=== PATIENT | female | born 1930 | race Caucasian/White ===

== ENCOUNTER 2016-09-18 21:40 | Inpatient (IN) | payer MEDICARE, MEDICAID ==
[2016-09-18 21:40] VITALS: BMI 24.1
[2016-09-18 22:03] LABS: ALLEN'S TEST PASS; BEb 3.2 (+/- 2); TCO2 29.2 MMOL/L (23-27)
[2016-09-18 22:04] LABS: ABG Draw Site Right Radial
--- NOTE | 2016-09-18 22:10 | EDPRACDOC ---
- General Information Chief Complaint: Flu-Like Symptoms Stated Complaint: RESP Time Seen by Provider: 09/18/16 22:01 Information Source: Patient Mode of Arrival: Ambulance Home Medications: Home Medications Acetaminophen [Tylenol] 325 mg PO Q6 PRN 09/18/16 Aspirin (Enteric Coated) [Ecotrin] 81 mg PO DAILY 09/18/16 Atenolol 25 mg PO DAILY 09/18/16 Cholecalciferol (Vitamin D3) [Vitamin D3] 2,000 unit PO DAILY 09/18/16 Cyanocobalamin (Vitamin B-12) [Vitamin B-12] 1,000 mcg PO DAILY 09/18/16 Cyclosporine [Restasis (0.05%)] 1 drop OU BID 09/18/16 Denosumab [Prolia] 60 mg SQ .Q6 MONTHS 09/18/16 Dm/Phenyleph/Chlorpheniramine [Norel Dm Liquid] 0.5 tab PO BID 09/18/16 Docusate Sodium 100 mg PO DAILY 09/18/16 Furosemide [Lasix] 20 mg PO DAILY 09/18/16 Gabapentin [Gralise] 300 mg PO BID 09/18/16 Guaifenesin [Q-Tussin] 10 ml PO QID PRN 09/18/16 Guaifenesin-Dextromethorphan [Robitussin Dm] 10 ml PO Q6 PRN 09/18/16 Guaifenesin/D-Methorphan Hb/PE [Robafen Cf Liquid] 10 ml PO QID 09/18/16 Hydrocodone 5 mg & APAP 325 mg [Lortab 5-325 Tab] 0.5 tab PO Q4 PRN 09/18/16 Ibuprofen 600 mg PO BID 09/18/16 Ibuprofen 600 mg PO DAILY PRN 09/18/16 Lactobacillus Combination No.4 [Probiotic] 1 each PO DAILY 09/18/16 Levothyroxine [Synthroid, Levoxyl] 50 mcg PO DAILY 09/18/16 Lubiprostone [Amitiza] 24 mcg PO DAILY 09/18/16 Magnesium Hydroxide [Milk of Magnesia] 30 mg PO DAILY PRN 09/18/16 Melatonin 5 mg PO HS 09/18/16 Ondansetron HCl 4 mg PO TID PRN 09/18/16 Oxybutynin Chloride [Ditropan Xl] 10 mg PO DAILY 09/18/16 Pantoprazole Sodium 40 mg PO DAILY 09/18/16 Polyethylene Glycol 3350 17 gm MC DAILY PRN 09/18/16 Vit A/Vit C/Vit E/Zinc/Copper [Preservision Areds Softgel] 1 each PO BID Zolpidem Tartrate 5 mg PO HS PRN 09/18/16 Allergies/Adverse Reactions: Allergies Allergy/AdvReac Type Severity Reaction Status Date / Time codeine [Codeine] Allergy Unknown/See Verified 09/18/16 21:55 Comments Sulfa (Sulfonamide Allergy Unknown/See Verified 09/18/16 21:55 Antibiotics) Comments [Sulfa(Sulfonamide Antibiotics)] - History of Present Illness Onset: 1 week HPI: PATIENT PRESENTS C/O SOB AND COUGH FOR 3 DAYS. NO N/V/D. COUGH NONPRODUCTIVE. PATIENT COMPLETED MOXIFLOXACIN ON THE . PATIENT RECEIVED ALBUTEROL AND SOLU MEDROL IN ROUTE Treated Infection: Antibiotic Symptoms: Reports: Chills, Fever, SOB, Myalgia ED Past Medical History - History Reviewed Yes Nurses notes reviewed and agree except as marked Travel Outside of [place] in the Last 3 Months?: No - Patient Medical History Cardiac History: Reports: Atrial Fibrillation, Hypertension, Hypercholesterolemia GI/ History: Reports: Urinary Tract Infection, Gastroesophageal Reflux Musculoskeletal History: Reports: Arthritis Psychological History: Denies: Depression Systemic History: Reports: Anemia. Denies: Cancer Surgical History: Reports: Hysterectomy, Tonsillectomy/Adnoidectomy, Other - Family Medical History Reports: Cancer (sister - breast). Denies: Hypertension, Diabetes, Stroke, Cardiac Disorders - Social Medical History Smoking Status: Never smoker ETOH: None Substance Abuse: None Lives In: Detention Facility EDM Review of Systems - Review of Systems ROS Negative Except as Marked: Yes All systems reviewed and were negative except as marked Constitutional: No Symptoms Reported. negative: Fever, Chills, Weakness, Fatigue, Loss of Appetite Eyes: No Symptoms Reported. negative: Redness, Blurred Vision, Double Vision, Discharge, Pain, Light Sensitive, Photophobia Ears: No Symptoms Reported. negative: Pain, Hearing Loss, Drainage, Ear Pulling Throat: No Symptoms Reported. negative: Pain, Swelling Nose: No Symptoms Reported. negative: Congestion, Bleeding, Discharge, Injection, Swelling, Deformity, Ecchymosis, Tender, Abrasion, Laceration Mouth: No Symptoms Reported. negative: Pain, Drooling Respiratory: Cough, Shortness of Breath. negative: Barky Cough, Brassy Cough, Hemoptysis, Wheezing Cardiovascular: No Symptoms Reported. negative: Chest Pain, Palpitations, Syncope, Edema, Orthopnea, PND, Skin Mottling, Cyanosis Gastrointestinal: No Symptoms Reported. negative: Pain, Constipation, Nausea, Vomiting, Diarrhea, Melena, Formula Intolerance Genitourinary: No Symptoms Reported. negative: Dysuria, Hematuria, Frequency, Discharge, Bleeding, Testicular Pain, Neurological: No Symptoms Reported. negative: Headache, Dizziness, Seizure, Numbness, Weakness, Speech Difficulty, Gait Difficulty Musculoskeletal: No Symptoms Reported. negative: Neck, Chestwall, Ribs, Back, Shoulder, Arm, Elbow, Forearm, Wrist, Hand, Pelvis, Hip, Femur, Knee, Leg, Ankle , Foot Integumentary: No Symptoms Reported. negative: Itching, Rash, Bruising, Wound Allergic/Immunologic: No Symptoms Reported. negative: Hives, Itching Hematologic: No Symptoms Reported. negative: Lymphadenopathy, Easy Bruising, Easy Bleeding Endocrine: No Symptoms Reported. negative: Weight Gain, Weight Loss Psychiatric: No Symptoms Reported. negative: Anxiety, Depression, Hallucinations, Insomnia, Suicidal - Physical Exam Constitutional: Alert (Awake), No apparent distress Oriented to: Time, Person, Place Last recorded Vital Signs: Last Vital Signs Temp 97.9 F 09/18/16 21:42 Pulse 70 09/18/16 21:42 Resp 22 09/18/16 21:42 BP 147/65 09/18/16 21:42 Pulse Ox 92 09/18/16 21:42 Oxygen Pulse Oxygen Saturation 92 O2 Device Room Air Oxygen Flow Rate Fraction of Inspired Oxygen ( FIO2) - HEENT Head: Normal ( normocephalic) Eye Exam: Normal (PERRL, EOMI, Sclera white) Oropharynx: Normal (Pharynx:Moist without exudate,Gums-no swelling) Tympanic Membrane: Normal ENT EAC: Normal TMJ: Normal Nose: No Symptoms Reported (septum midline) Neck: Normal (FROM, trachea at midline) - Respiratory/Cardiovascular Respiratory: Diminished, Rhonchi Cardiovascular: Normal (RRR without murmur, gallop or rub) - GI Auscultation: Normal (NABS) Palpation: Normal (Soft,No rebound or guarding, non distended) Tenderness: Non tender Regalado's Sign: Negative - Musculoskeletal Back: Normal (Non-Tender) Extremities: Normal (Normal tone, Pulses 2+ No cyanosis or edema, FROM) - Integumentary Skin: Normal, Warm, Dry Lymphatics: Normal (no adenopathy) - Neurologic Memory Impaired: Normal Motor Function: Normal (Normal tone, Pulses 2+ No cyanosis or edema, FROM) Cranial Nerve: Normal (CN II-X11 intact sensation, strength 5/5) Cerebellar: Normal Mood Description: Normal Perception: Normal - Results 09/18/16 22:51 09/18/16 22:51 Puncture Site Right radial 09/18/16 22:00 pH 7.430 pH UNITS (7.35-7.45) 09/18/16 22:00 pCO2 42.0 mmHg (35-45) 09/18/16 22:00 pO2 57.0 mmHg (80-100) L 09/18/16 22:00 HCO3 27.9 MMOL/L (22-26) H 09/18/16 22:00 Total CO2 29.2 MMOL/L (23-27) H 09/18/16 22:00 Base Excess 3.2 (+/- 2) H 09/18/16 22:00 FiO2 % 21% 09/18/16 22:00 Specimen Drawn By Aden 09/18/16 22:00 Lab Results 09/18/16 22:00 Puncture Site Right radial pH 7.430 pCO2 42.0 pO2 57.0 L HCO3 27.9 H Total CO2 29.2 H Base Excess 3.2 H FiO2 % 21% Specimen Drawn By Aden - EKG EKG #1 EKG Time: 22:22 -: Yes EKG interpreted by me Rate: bpm: 59 [place]: Normal Rhythm: SB Block: None Hypertrophy: None ST: Normal - Departure Yes I personally saw and evaluated the patient. Disposition: Admit IP To This Hospital Condition: Stable Final Diagnosis: Hypoxia Bilateral pneumonia Qualifiers: Pneumonia type: due to unspecified organism Lung location: unspecified part of lung Qualified Code(s): J18.9 - Pneumonia, unspecified organism Instructions: Bacterial Pneumonia (ED) Education/Counseling Given To: Patient Education/Counseling Given Regarding: Diagnosis, Treatment, Prognosis Decision to Admit Time: 00:19 Decision to admit date: 09/19/16 Decision to admit: from ED - Physician Consulted Hospitalist Time Called: 00:20 Provider Called: Bert Lan Time Alumni Coordinator Returned Call: 00:20
--- NOTE | 2016-09-18 22:40 | DIRPT ---
CLINICAL DATA: 85-year-old female with shortness of breath EXAM: CHEST 2 VIEW COMPARISON: Radiograph dated 04/29/2014 FINDINGS: Two views of the chest demonstrate emphysematous changes of the lungs. No focal consolidation, pleural effusion, or pneumothorax. There is stable cardiomegaly. There is atherosclerotic calcification of the aorta. Degenerative changes of the spine. IMPRESSION: No active cardiopulmonary disease. Electronically Signed By: Royer Guadalupe M.D. On: 09/18/2016 22:37
[2016-09-18] MEDS ORDERED: ALBUTEROL 0.083% 3 ML NEB NEB ONE (22:44)
[2016-09-18] MEDS ORDERED: Pharmacy Review for Metformin - IV Contrast Given SCH (23:00)
[2016-09-18 23:05] LABS: AUTOMATED BASOPHIL 0.7 % (0-2); AUTOMATED EOSINOPHIL 6.8 % (0-5); AUTOMATED LYMPH 33.2 % (17-44); AUTOMATED MONOCYTE 17.6 % (3-10); AUTOMATED NEUTROPHIL 41.7 % (45-76); MPV 7.5 fL (7.4-10.4)
[2016-09-18 23:14] LABS: BLOOD UREA NITROGEN 20 MG/DL (7-17); CALC CORRECTED 9.2 MG/DL (8.4-10.2); CALCIUM 8.6 MG/DL (8.4-10.2); CALCULATED OSMOLALITY 279 MOs/Kg (270-290); CHLORIDE 105 mEq/L (98-107); CPK TOTAL WITH POSSIBLE MB 23 IU/L (30-134); GLUCOSE 114 MG/DL (70-99); SODIUM LEVEL 143 mEq/L (137-146); TOTAL PROTEIN 6.1 G/DL (6.3-8.2)
[2016-09-18] MEDS ORDERED: POTASSIUM CHLORIDE 20 MEQ TAB PO ONE (23:34)
--- NOTE | 2016-09-19 00:06 | DIRPT ---
CLINICAL DATA: Acute onset of shortness of breath and cough. Decreased O2 saturation. Initial encounter. EXAM: CT ANGIOGRAPHY CHEST WITH CONTRAST TECHNIQUE: Multidetector CT imaging of the chest was performed using the standard protocol during bolus administration of intravenous contrast. Multiplanar CT image reconstructions and MIPs were obtained to evaluate the vascular anatomy. CONTRAST: 80 mL of Isovue 370 IV contrast COMPARISON: CTA of the chest performed 05/21/2006, and chest radiograph performed earlier today at 10:23 p.m. FINDINGS: There is no evidence of pulmonary embolus. Patchy ground-glass opacities are noted bilaterally. This may reflect a mild infectious process or possibly atelectasis. Mild left basilar atelectasis or scarring is noted. There is no evidence of pleural effusion or pneumothorax. No masses are identified; no abnormal focal contrast enhancement is seen. Mild tracheomalacia is noted. Diffuse coronary artery calcifications are seen. There is a prominent 3.4 x 2.4 x 1.4 cm mass to the left of the trachea at the superior mediastinum, of uncertain significance. Remaining visualized nodes are normal in size. No pericardial effusion is identified. No axillary lymphadenopathy is seen. A 1.1 cm hypodensity is noted within the left thyroid lobe. The visualized portions of the liver and spleen are unremarkable. No acute osseous abnormalities are seen. Review of the MIP images confirms the above findings. IMPRESSION: 1. No evidence of pulmonary embolus. 2. Patchy ground-glass bilateral airspace opacities noted bilaterally. This may reflect a mild infectious process or possibly atelectasis. Mild left basilar atelectasis or scarring noted. 3. Mild tracheomalacia noted. 4. Diffuse coronary artery calcifications seen. 5. New prominent 3.4 x 2.4 x 1.4 cm mass to the left of the trachea at the superior mediastinum, of uncertain significance. This would be amenable to biopsy, as deemed clinically appropriate. It could arise from the thyroid, though a connection with the thyroid is not definitely seen on this study. Further evaluation is suggested as deemed clinically appropriate. Electronically Signed By: Ward Stanley M.D. On: 09/19/2016 00:04
[2016-09-19] MEDS ORDERED: PIPERACILLIN AND TAZOBACTAM 3.375 GM in D5W 100 ML IV ONE (00:21)
--- NOTE | 2016-09-19 01:12 | HISTPHYS ---
- Chief Complaint coughing, fever - History of Present Illness PRIMARY CARE PROVIDER: Dr. Stallings Patient is a resident of [facility] HPI: The patient is an 85 yo woman who presents with worsening coughing. She has had coughing for 1.5 weeks but worse in the last few days. Daughter reports that the patient had coughing (much more mild than this) for years. Treated with moxifloxacin as an outpatient and completed course but no improvement. Onset: 1.5 weeks ago. Duration: intermittent.Frequent. Character: episodes of severe coughing. Alleviated by: Nothing. Exacerbated by: exertion. Associated Symptoms: Coughing is not productive. Wheezing. Mostly not short of breath; only when she is having a coughing spell. Had fever and chills earlier. Treatments: none at home except usual medications. - Medical History Cardiac History: Reports: Atrial Fibrillation, Hypertension, Hypercholesterolemia (possible), Syncope (severe episode 2012 with skull fracture and brain bleed) GI/ History: Reports: Urinary Tract Infection, Gastroesophageal Reflux Musculoskeletal History: Reports: Arthritis Systemic History: Reports: Anemia. Denies: Cancer Neurological History: Reports: Other (2012 traumatic fall with skull fracture and brain bleed. NO BLOOD THINNERS.). Denies: Cerebrovascular Accident (but had 3-4 TIAs) Psychological History: Denies: Depression - Surgical History Reports: Hysterectomy, Tonsillectomy/Adnoidectomy, Other (IVC filter in 2012 at [facility]) - Medictions/Allergies Allergies codeine [Codeine] Allergy (Verified 09/18/16 21:55) Unknown/See Comments Sulfa (Sulfonamide Antibiotics) [Sulfa(Sulfonamide Antibiotics)] Allergy ( Verified 09/18/16 21:55) Unknown/See Comments SKIN BLISTERS Current Medication List: Reviewed Home Medications Acetaminophen [Tylenol] 325 mg PO Q6 PRN 09/18/16 Aspirin (Enteric Coated) [Ecotrin] 81 mg PO DAILY 09/18/16 Atenolol 25 mg PO DAILY 09/18/16 Cholecalciferol (Vitamin D3) [Vitamin D3] 2,000 unit PO DAILY 09/18/16 Cyanocobalamin (Vitamin B-12) [Vitamin B-12] 1,000 mcg PO DAILY 09/18/16 Cyclosporine [Restasis (0.05%)] 1 drop OU BID 09/18/16 Denosumab [Prolia] 60 mg SQ .Q6 MONTHS 09/18/16 Dm/Phenyleph/Chlorpheniramine [Norel Dm Liquid] 0.5 tab PO BID 09/18/16 Docusate Sodium 100 mg PO DAILY 09/18/16 Furosemide [Lasix] 20 mg PO DAILY 09/18/16 Gabapentin [Gralise] 300 mg PO BID 09/18/16 Guaifenesin [Q-Tussin] 10 ml PO QID PRN 09/18/16 Guaifenesin-Dextromethorphan [Robitussin Dm] 10 ml PO Q6 PRN 09/18/16 Guaifenesin/D-Methorphan Hb/PE [Robafen Cf Liquid] 10 ml PO QID 09/18/16 Hydrocodone 5 mg & APAP 325 mg [Lortab 5-325 Tab] 0.5 tab PO Q4 PRN 09/18/16 Ibuprofen 600 mg PO BID 09/18/16 Ibuprofen 600 mg PO DAILY PRN 09/18/16 Lactobacillus Combination No.4 [Probiotic] 1 each PO DAILY 09/18/16 Levothyroxine [Synthroid, Levoxyl] 50 mcg PO DAILY 09/18/16 Lubiprostone [Amitiza] 24 mcg PO DAILY 09/18/16 Magnesium Hydroxide [Milk of Magnesia] 30 mg PO DAILY PRN 09/18/16 Melatonin 5 mg PO HS 09/18/16 Ondansetron HCl 4 mg PO TID PRN 09/18/16 Oxybutynin Chloride [Ditropan Xl] 10 mg PO DAILY 09/18/16 Pantoprazole Sodium 40 mg PO DAILY 09/18/16 Polyethylene Glycol 3350 17 gm MC DAILY PRN 09/18/16 Vit A/Vit C/Vit E/Zinc/Copper [Preservision Areds Softgel] 1 each PO BID Zolpidem Tartrate 5 mg PO HS PRN 09/18/16 - Family History Reports: Cancer (Sister - breast), Cardiac Disorders (Father: CHF, possible [place]) , Other (Mother 84yo.). Denies: Hypertension, Diabetes, Stroke - Social History Lives: in Assisted Living ([facility]) Smoking Status: Never smoker Social History: Denies: Alcohol Use, Substance Use Disorder - Review of Systems GENERAL: Had fever and chills earlier. No diaphoresis. Positive for fatigue/ malaise. HEENT: No ear pain or discharge. No nasal discharge or bleeding. No throat pain or swelling. No eye pain or eye redness. RESPIRATORY: Cough, wheezing, shortness of breath. CARDIOVASCULAR: No chest pain or palpitations. GI: No abdominal pain, nausea, vomiting, diarrhea, constipation, or bloody stool. NEUROLOGICAL: No headache or focal weakness. INTEGUMENT: no rashes, itching, or lesions. LYMPHATIC SYSTEM: no lymph node swelling or pain. MUSCULOSKELETAL: no new pain or joint swelling. GENITOURINARY: No dysuria or hematuria. ENDOCRINE: No polyuria or polydipsia. HEME: No chronic anemia, bleeding, or easy bruising. - Physical Exam Vital Signs: Initial Vitals Temperature 97.9 F 09/18/16 21:42 Pulse Rate 70 09/18/16 21:42 Respiratory Rate 22 09/18/16 21:42 Blood Pressure 147/65 09/18/16 21:42 Pulse Oxygen Saturation 92 09/18/16 21:42 Vital Signs - 24 hr 09/18/16 21:42 Temperature 97.9 F Pulse Rate 70 Respiratory 22 Rate Blood Pressure 147/65 Pulse Oxygen 92 Saturation Weight: 65.7 kg Height: 5 feet 5 inches BMI: 24.1 - Other Exam Other Exam Findings: GENERAL: Ill-appearing, well nourished, in acute distress. HEENT: Normocephalic. Minimal deformity consistent with history of posterior skull fracture. Pupils equal and round. Nares patent, without discharge or bleeding. No oropharyngeal lesions or erythema. Mucous membranes are dry. NECK: is supple, no masses, trachea midline. RESPIRATORY: Clear to auscultation bilaterally. Chest wall movements are symmetric. No use of accessory muscles to breathe. Intermittent mild tachypnea. Severe wheezing bilaterally. Bilateral coarse breath sounds/rhonchi. No rales. Frequent coughing. CARDIOVASCULAR: Normal S1, S2. Irregular. No murmurs, rubs, or gallops. PMI non- displaced. Carotids: no carotid bruits. No bradycardia or tachycardia. DP pulses 2+ bilaterally. GI: soft, nontender, non-distended, normal active bowel sounds. No hepatosplenomegaly. INTEGUMENT: Clean, dry, and intact. No rashes. Has lesion on her right leg anterior tib area on medial half: well-healing approx 10 cm ovoid lesion with mild hyperpigmentation and only a very small 0.5 cm superficial open wound the center. No warmth, edema, exudate, or tenderness. MUSCULOSKELETAL: Moving all extremities. No cyanosis. No clubbing. Edema: none bilaterally. NEUROLOGICAL: Cranial nerves 2-12 grossly intact. Motor 4/5 throughout. Reflexes : 2+ bilaterally. Babinski: toes downgoing bilaterally. Intact Finger to nose. Sensory grossly intact to light touch. Intact rapid alternating movements bilaterally. No pronator drift. PSYCHIATRIC: Oriented. Normal and appropriate affect. LYMPHATIC: No cervical lymphadenopathy. No supraclavicular lymphadenopathy. - Lab Results Laboratory Results - last 24 hr 09/18/16 09/18/16 09/18/16 22:00 22:51 22:51 WBC 7.1 RBC 3.79 L Hgb 11.0 L Hct 32.6 L MCV 86 MCH 29.1 MCHC 33.8 RDW 15.0 H Plt Count 249 MPV 7.5 Neut % (Auto) 41.7 L Lymph % (Auto) 33.2 Gila % (Auto) 17.6 H Eos % (Auto) 6.8 H Baso % (Auto) 0.7 Absolute Neuts (auto) 2.91 Absolute Lymphs (auto) 2.34 Puncture Site Right radial pH 7.430 pCO2 42.0 pO2 57.0 L HCO3 27.9 H Total CO2 29.2 H Base Excess 3.2 H FiO2 % 21% Specimen Drawn By [facility] Sodium 143 Potassium 3.2 L Chloride 105 Carbon Dioxide 27 Anion Gap 14 BUN 20 H Creatinine 1.20 H Estimated GFR (MDRD) 43 L Glucose 114 H Calculated Osmolality 279 Calcium 8.6 Corrected Calcium 9.2 Total Bilirubin 0.3 AST 14 ALT 27 Alkaline Phosphatase 113 Creatine Kinase 23 L Troponin I < 0.01 Aps-N-Sppugrcnyqt Pept Total Protein 6.1 L Albumin 3.4 L 09/18/16 22:51 WBC RBC Hgb Hct MCV MCH MCHC RDW Plt Count MPV Neut % (Auto) Lymph % (Auto) Gila % (Auto) Eos % (Auto) Baso % (Auto) Absolute Neuts (auto) Absolute Lymphs (auto) Puncture Site pH pCO2 pO2 HCO3 Total CO2 Base Excess FiO2 % Specimen Drawn By Sodium Potassium Chloride Carbon Dioxide Anion Gap BUN Creatinine Estimated GFR (MDRD) Glucose Calculated Osmolality Calcium Corrected Calcium Total Bilirubin AST ALT Alkaline Phosphatase Creatine Kinase Troponin I Aoc-U-Jijwsxxqzgh Pept 1360 Total Protein Albumin - Diagnostic Findings DIAGNOSTIC DATA: EK bpm. Sinus bradycardia. IMAGING: Chest x-ray, viewed personally: EXAM: CHEST 2 VIEW COMPARISON: Radiograph dated 04/29/2014 FINDINGS: Two views of the chest demonstrate emphysematous changes of the lungs. No focal consolidation, pleural effusion, or pneumothorax. There is stable cardiomegaly. There is atherosclerotic calcification of the aorta. Degenerative changes of the spine. IMPRESSION: No active cardiopulmonary disease. CTA Chest, viewed personally: EXAM: CT ANGIOGRAPHY CHEST WITH CONTRAST TECHNIQUE: Multidetector CT imaging of the chest was performed using the standard protocol during bolus administration of intravenous contrast. Multiplanar CT image reconstructions and MIPs were obtained to evaluate the vascular anatomy. CONTRAST: 80 mL of Isovue 370 IV contrast COMPARISON: CTA of the chest performed 05/21/2006, and chest radiograph performed earlier today at 10:23 p.m. FINDINGS: There is no evidence of pulmonary embolus. Patchy ground-glass opacities are noted bilaterally. This may reflect a mild infectious process or possibly atelectasis. Mild left basilar atelectasis or scarring is noted. There is no evidence of pleural effusion or pneumothorax. No masses are identified; no abnormal focal contrast enhancement is seen. Mild tracheomalacia is noted. Diffuse coronary artery calcifications are seen. There is a prominent 3.4 x 2.4 x 1.4 cm mass to the left of the trachea at the superior mediastinum, of uncertain significance. Remaining visualized nodes are normal in size. No pericardial effusion is identified. No axillary lymphadenopathy is seen. A 1.1 cm hypodensity is noted within the left thyroid lobe. The visualized portions of the liver and spleen are unremarkable. No acute osseous abnormalities are seen. Review of the MIP images confirms the above findings. IMPRESSION: 1. No evidence of pulmonary embolus. 2. Patchy ground-glass bilateral airspace opacities noted bilaterally. This may reflect a mild infectious process or possibly atelectasis. Mild left basilar atelectasis or scarring noted. 3. Mild tracheomalacia noted. 4. Diffuse coronary artery calcifications seen. 5. New prominent 3.4 x 2.4 x 1.4 cm mass to the left of the trachea at the superior mediastinum, of uncertain significance. This would be amenable to biopsy, as deemed clinically appropriate. It could arise from the thyroid, though a connection with the thyroid is not definitely seen on this study. Further evaluation is suggested as deemed clinically appropriate. - Assessment (1) Bacterial pneumonia J15.9 - UNSPECIFIED BACTERIAL PNEUMONIA Acute Present on Admission: Yes Patient just completed a course of moxifloxacin on 09/10/2016 that was presumably for a respiratory infection. She does live in assisted living, which could be considered a healthcare facility. Failed outpatient management with recent antibiotic. Plan: Cultures ordered. IV Zosyn for broader coverage for risk of healthcare associated pneumonia or even aspiration pneumonia. (2) Hypoxia R09.02 - HYPOXEMIA Acute Present on Admission: Yes Patient has dyspnea and is not improving. Patient's PO2 is low. Plan: Place patient on oxygen by nasal cannula and increase to Venti Mask 40% if needed. Monitor oxygen saturation levels and keep O2 sats greater than 92%. (3) Wheezing R06.2 - WHEEZING Acute Present on Admission: Yes No history of asthma or COPD. Significant wheezing on exam. Plan: Trial of Duonebs and albuterol. Consider adding IV methylprednisolone if no improvement. 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 This would be amenable to biopsy, as deemed clinically appropriate. It could arise from the thyroid, though a connection with the thyroid is not definitely seen on this study. Further evaluation is suggested as deemed clinically appropriate. Plan: Informed family and patient. They will decide whether they want to proceed with evaluation. Re-assess tomorrow for their decision. Could treat current infection and then if patient continues to have cough, consider further evaluation of the lesion. (5) Thyroid nodule E04.1 - NONTOXIC SINGLE THYROID NODULE Acute Present on Admission: Yes CTA chest findin.1 cm hypodense lesion in the left lobe of the thyroid. Per family it is chronic. Plan: Outpatient follow up with primary care. Will check TSH. (6) Cough R05 - COUGH Acute Present on Admission: Yes Acute and chronic. Reports that she has had a cough x years but current coughing is much worse. Plan: PRN medications. Will need full workup if it does not resolve; may need outpatient evaluation. (7) History of intracranial hemorrhage Z86.79 - PERSONAL HISTORY OF OTHER DISEASES OF THE CIRCULATORY SYSTEM Chronic Present on Admission: Yes After a traumatic fall had a skull fracture and severe intracranial bleed. Was told not to take anticoagulants. Case Care Discussed with: Patient, Family, Nursing Staff Total Time: 70 min
[2016-09-19] MEDS ORDERED: ALBUTEROL 0.083% 3 ML NEB NEB PRN (03:38)
[2016-09-19] MEDS ORDERED: NS 500 ML IV ONE (05:32)
[2016-09-19] MEDS: PANTOPRAZOLE 40 MG TAB PO SCH (05:38)
[2016-09-19] MEDS ORDERED: Vaccine Screening Complete SCH (06:00)
[2016-09-19 07:28] LABS: MPV 7.6 fL (7.4-10.4)
[2016-09-19] MEDS: Albuterol/Ipratropium Neb 3 ML NEB NEB SCH ×3 (07:28→20:29)
[2016-09-19 07:39] LABS: BLOOD UREA NITROGEN 17 MG/DL (7-17); CALCIUM 8.5 MG/DL (8.4-10.2); CALCULATED OSMOLALITY 276 MOs/Kg (270-290); CHLORIDE 106 mEq/L (98-107); GLUCOSE 76 MG/DL (70-99); SODIUM LEVEL 143 mEq/L (137-146)
[2016-09-19] MEDS: FUROSEMIDE 20 MG TAB PO SCH (08:06)
[2016-09-19] MEDS: ATENOLOL 25 MG TAB PO SCH (08:06)
[2016-09-19] MEDS: Docusate Sodium 100 MG CAP PO SCH (08:07)
[2016-09-19] MEDS: LEVOTHYROXINE 50 MCG (0.05 MG) TAB PO SCH (08:07)
[2016-09-19] MEDS: PIPERACILLIN AND TAZOBACTAM 3.375 GM in D5W 100 ML IV SCH ×3 (08:07→21:15)
[2016-09-19] MEDS: GABAPENTIN 300 MG CAP PO SCH ×2 (08:07→21:16)
[2016-09-19] MEDS: TOLTERODINE 4 MG LA CAP PO SCH (08:07)
[2016-09-19 08:46] LABS: WBC/URINE TNTC (0-5)
[2016-09-19] MEDS ORDERED: Non-Formulary Medication ITEM (Cholecalciferol (Vitamin D3) [Vitamin D3] 2,000 UNIT) PO SCH (09:00)
[2016-09-19] MEDS ORDERED: VIT A PO SCH (09:00)
[2016-09-19] MEDS ORDERED: Non-Formulary Medication ITEM (Cyanocobalamin (Vitamin B-12) [Vitamin B-12] 1,000 MCG) PO SCH (09:00)
[2016-09-19] MEDS ORDERED: LACTOBACILLUS COMBINATION NO 4 PO SCH (09:00)
[2016-09-19] MEDS ORDERED: GABAPENTIN 300 MG PO SCH (09:00)
[2016-09-19] MEDS ORDERED: [UNRECOGNIZED DRUG - OTHER] PO SCH (09:00)
[2016-09-19] MEDS ORDERED: COPPER PO SCH (09:00)
[2016-09-19] MEDS ORDERED: VIT C PO SCH (09:00)
[2016-09-19] MEDS ORDERED: LUBIPROSTONE 24 MCG CAP PO SCH (09:00)
[2016-09-19] MEDS ORDERED: ZINC PO SCH (09:00)
[2016-09-19] MEDS ORDERED: VIT E PO SCH (09:00)
[2016-09-19] MEDS ORDERED: OXYBUTYNIN CHLORIDE 10 MG PO SCH (09:00)
[2016-09-19] MEDS ORDERED: CYCLOSPORINE OU SCH (09:00)
[2016-09-19 09:03] LABS: LEUKOCYTES/URINE 2+ (NEGATIVE); NITRITE/URINE NEG (NEGATIVE); URINE OCCULT BLOOD NEG (NEG/TRACE)
[2016-09-19] MEDS: CYANOCOBALAMIN (Vitamin B-12) 500 MCG TABLET PO SCH (14:14)
[2016-09-19] MEDS: CHOLECALCIFEROL 1000 UNITS TAB PO SCH (14:14)
[2016-09-19] MEDS: PROBIOTIC BLEND TAB PO SCH (14:15)
[2016-09-19] MEDS: VITAMINS, MULTIPLE CAP PO SCH (14:15)
[2016-09-19] MEDS: AZITHROMYCIN 500 MG in D5W 250 ML IV SCH (14:54)
--- NOTE | 2016-09-19 14:59 | GENMEDPROG ---
Subjective Note: Patient in bed responsive follows commands. Acutely ill but not toxic- appearing. Still short of breath coughing producing fair amount thick sputum. Audible wheezes.. Notes Reviewed: Yes Events from last night noted and discussed with Clinical Staff Current Medication List: Reviewed Currently: Reports: Cough, Wheezing, KING, SOB, Sputum, Reflux Sx DVT Prophylaxis: Yes - Physical Examination Vital Signs and I&O: Last Vital Signs Temp 98.7 F 09/19/16 10:20 Pulse 82 09/19/16 10:20 Resp 16 09/19/16 10:20 BP 127/58 L 09/19/16 10:20 Pulse Ox 96 09/19/16 13:52 Oxygen Pulse Oxygen Saturation 96 O2 Device Room Air Oxygen Flow Rate 2 Fraction of Inspired Oxygen ( FIO2) Intake & Output 09/16/16 09/17/16 09/18/16 09/19/16 23:59 23:59 23:59 23:59 Intake Total 580 Balance 580 Patient's weight 76.232 kg General: Alert, Oriented x3, Cooperative, Mild distress HEENT: Normal, PERRLA, EOMI, Anicteric Sclera Neck: Non-tender, Normal inspection, Limited range of motion Lymphatics: Normal (no adenopathy) Respiratory: Diminished, Rhonchi, Wheezes Cardiovascular: Regular rate, Normal S1, Normal S2, Murmurs GI: Normal bowel sounds, Soft, Non tender, No hepatospenomegaly, No masses, Obese Extremities/Musculoskeletal: Edema, DJD Skin: Warm,Dry and Intact, No rashes, No significant lesion Neurological: Normal speech, Reflexes 2+ Psych/Mental Status: Anxious Lab/DI/Studies Reviewed: Last Vital Signs Temp 98.7 F 09/19/16 10:20 Pulse 82 09/19/16 10:20 Resp 16 09/19/16 10:20 BP 127/58 L 09/19/16 10:20 Pulse Ox 96 09/19/16 13:52 09/19/16 06:30 09/19/16 06:30 - Assessment (1) Dehydration Acute E86.0 - DEHYDRATION Comment/Plan: Continue IV fluids. (2) UTI (urinary tract infection) Acute N39.0 - URINARY TRACT INFECTION, SITE NOT SPECIFIED Qualifiers: Urinary tract infection type: acute cystitis Hematuria presence: with hematuria Qualified Code(s): N30.01 - Acute cystitis with hematuria Comment/Plan: Continue antibiotics await urine culture. (3) Bilateral pneumonia Acute J18.9 - PNEUMONIA, UNSPECIFIED ORGANISM Qualifiers: Pneumonia type: due to unspecified organism Lung location: unspecified part of lung Qualified Code(s): J18.9 - Pneumonia, unspecified organism Comment/Plan: Continue antibiotics supplemental O2 nebulized bronchodilators. Continue aggressive pulmonary toilet. (4) Hypothyroid Acute E03.9 - HYPOTHYROIDISM, UNSPECIFIED Qualifiers: Hypothyroidism type: acquired Qualified Code(s): E03.9 - Hypothyroidism, unspecified Comment/Plan: Continue home dose Synthroid (5) GERD (gastroesophageal reflux disease) Acute K21.9 - GASTRO-ESOPHAGEAL REFLUX DISEASE WITHOUT ESOPHAGITIS Qualifiers: Esophagitis presence: without esophagitis Qualified Code(s): K21.9 - Gastro -esophageal reflux disease without esophagitis Comment/Plan: continue ppi (6) Mediastinal mass Acute J98.59 - OTHER DISEASES OF MEDIASTINUM, NOT ELSEWHERE CLASSIFIED Comment/Plan: Patient family undecided on further workup. Case Care Discussed with: Patient, Family, Nursing Staff Education/Counseling Given To: Patient Education/Counseling Given Regarding: Diagnosis, Treatment, Prognosis, Follow Up Critical Care: No Code: Other ([id number])
[2016-09-19] MEDS ORDERED: MELATONIN 5 MG PO SCH (21:00)
[2016-09-19] MEDS: LUBIPROSTONE 24 MCG CAP PO SCH (21:16)
[2016-09-19] MEDS: ZOLPIDEM TARTRATE 5 MG TAB PO PRN (21:19)
[2016-09-20] MEDS: Albuterol/Ipratropium Neb 3 ML NEB NEB SCH ×4 (02:18→21:30)
[2016-09-20] MEDS: PIPERACILLIN AND TAZOBACTAM 3.375 GM in D5W 100 ML IV SCH ×3 (02:38→14:00)
[2016-09-20] MEDS: PANTOPRAZOLE 40 MG TAB PO SCH (05:13)
[2016-09-20] MEDS: Docusate Sodium 100 MG CAP PO SCH (08:22)
[2016-09-20] MEDS: GABAPENTIN 300 MG CAP PO SCH ×2 (08:22→20:21)
[2016-09-20] MEDS: FUROSEMIDE 20 MG TAB PO SCH (08:23)
[2016-09-20] MEDS: TOLTERODINE 4 MG LA CAP PO SCH (08:23)
[2016-09-20] MEDS: LUBIPROSTONE 24 MCG CAP PO SCH ×2 (08:23→20:21)
[2016-09-20] MEDS: LEVOTHYROXINE 50 MCG (0.05 MG) TAB PO SCH (08:23)
[2016-09-20] MEDS: ATENOLOL 25 MG TAB PO SCH (08:23)
[2016-09-20] MEDS: VITAMINS, MULTIPLE CAP PO SCH (11:11)
[2016-09-20] MEDS: PROBIOTIC BLEND TAB PO SCH (11:11)
[2016-09-20] MEDS: AZITHROMYCIN 500 MG in D5W 250 ML IV SCH (11:12)
[2016-09-20] MEDS: CYANOCOBALAMIN (Vitamin B-12) 500 MCG TABLET PO SCH (11:12)
[2016-09-20] MEDS: CHOLECALCIFEROL 1000 UNITS TAB PO SCH (11:12)
[2016-09-20] MEDS ORDERED: Albuterol/Ipratropium Neb 3 ML NEB NEB PRN (16:59)
--- NOTE | 2016-09-20 17:03 | GENMEDPROG ---
Subjective Note: Patient in bed responsive follows commands still coughing producing small amount of sputum still tight in the chest and wheezy. No major behavior problems related to underlying dementia no anger agitation or hostility, only occasional periods of confusion Notes Reviewed: Yes Events from last night noted and discussed with Clinical Staff Current Medication List: Reviewed Currently: Reports: Cough, Wheezing, KING, SOB, Sputum, Reflux Sx DVT Prophylaxis: Yes - Physical Examination Vital Signs and I&O: Last Vital Signs Temp 98.3 F 09/20/16 14:00 Pulse 82 09/20/16 14:00 Resp 18 09/20/16 14:00 BP 124/58 L 09/20/16 14:00 Pulse Ox 93 09/20/16 14:00 Oxygen Pulse Oxygen Saturation 93 O2 Device Room Air Oxygen Flow Rate 2 Fraction of Inspired Oxygen ( FIO2) Intake & Output 09/17/16 09/18/16 09/19/16 09/20/16 23:59 23:59 23:59 23:59 Intake Total 1466 657 Balance 1466 657 Patient's weight 76.232 kg 76.005 kg General: Alert, Oriented x3, Cooperative, Mild distress HEENT: Normal, PERRLA, EOMI, Anicteric Sclera Neck: Non-tender, Normal inspection, Limited range of motion Lymphatics: Normal (no adenopathy) Respiratory: Diminished, Rhonchi, Wheezes Cardiovascular: Regular rate, Normal S1, Normal S2, Murmurs GI: Normal bowel sounds, Soft, Non tender, No hepatospenomegaly, No masses, Obese Extremities/Musculoskeletal: Edema, DJD Skin: Warm,Dry and Intact, No rashes, No significant lesion Neurological: Normal speech, Reflexes 2+ Psych/Mental Status: Anxious Lab/DI/Studies Reviewed: 09/19/16 06:30 09/19/16 06:30 - Assessment (1) Bilateral pneumonia Acute J18.9 - PNEUMONIA, UNSPECIFIED ORGANISM Qualifiers: Pneumonia type: due to unspecified organism Lung location: unspecified part of lung Qualified Code(s): J18.9 - Pneumonia, unspecified organism Comment/Plan: Continue antibiotics in the form of Rocephin and Zithromax. Continue nebulized bronchodilators and mucolytics. (2) Dehydration Acute E86.0 - DEHYDRATION Comment/Plan: Continue IV fluids at lower rate (3) UTI (urinary tract infection) Acute N39.0 - URINARY TRACT INFECTION, SITE NOT SPECIFIED Qualifiers: Urinary tract infection type: acute cystitis Hematuria presence: with hematuria Qualified Code(s): N30.01 - Acute cystitis with hematuria Comment/Plan: Continue antibiotic. Urine culture growing gram-negative rods, final ID pending (4) Hypothyroid Acute E03.9 - HYPOTHYROIDISM, UNSPECIFIED Qualifiers: Hypothyroidism type: acquired Qualified Code(s): E03.9 - Hypothyroidism, unspecified Comment/Plan: Continue home dose Synthroid (5) GERD (gastroesophageal reflux disease) Acute K21.9 - GASTRO-ESOPHAGEAL REFLUX DISEASE WITHOUT ESOPHAGITIS Qualifiers: Esophagitis presence: without esophagitis Qualified Code(s): K21.9 - Gastro -esophageal reflux disease without esophagitis Comment/Plan: continue ppi (6) Mediastinal mass Acute J98.59 - OTHER DISEASES OF MEDIASTINUM, NOT ELSEWHERE CLASSIFIED Comment/Plan: Patient family undecided on further workup. Case Care Discussed with: Patient, Family, Nursing Staff, Global Risk Management Director Education/Counseling Given To: Patient Education/Counseling Given Regarding: Diagnosis, Treatment, Prognosis, Follow Up Total Time: 45 min . Critical Care: No Code: 33030 (12+)
[2016-09-20] MEDS: CEFTRIAXONE 1 GM in D5W 100 ML IV SCH (19:00)
[2016-09-20] MEDS: ZOLPIDEM TARTRATE 5 MG TAB PO PRN (20:21)
[2016-09-21] MEDS: Albuterol/Ipratropium Neb 3 ML NEB NEB SCH ×4 (02:28→20:33)
[2016-09-21] MEDS: PANTOPRAZOLE 40 MG TAB PO SCH (05:31)
[2016-09-21] MEDS: GABAPENTIN 300 MG CAP PO SCH ×2 (10:14→21:08)
[2016-09-21] MEDS: PROBIOTIC BLEND TAB PO SCH (10:14)
[2016-09-21] MEDS: CHOLECALCIFEROL 1000 UNITS TAB PO SCH (10:14)
[2016-09-21] MEDS: ATENOLOL 25 MG TAB PO SCH (10:14)
[2016-09-21] MEDS: FUROSEMIDE 20 MG TAB PO SCH (10:15)
[2016-09-21] MEDS: AZITHROMYCIN 250 MG TAB PO SCH (10:15)
[2016-09-21] MEDS: CYANOCOBALAMIN (Vitamin B-12) 500 MCG TABLET PO SCH (10:15)
[2016-09-21] MEDS: Docusate Sodium 100 MG CAP PO SCH (10:16)
[2016-09-21] MEDS: VITAMINS, MULTIPLE CAP PO SCH (10:16)
[2016-09-21] MEDS: LEVOTHYROXINE 50 MCG (0.05 MG) TAB PO SCH (10:16)
[2016-09-21] MEDS: LUBIPROSTONE 24 MCG CAP PO SCH ×2 (10:16→21:08)
[2016-09-21] MEDS ORDERED: BENZONATATE 100 MG PERLES PO PRN (11:52)
--- NOTE | 2016-09-21 12:43 | GENMEDPROG ---
Chief Complaint: Pneumonia, UTI Subjective Note: She is feeling quite well, hoping to leave the hospital today. Her daughters at the bedside, shares some concern about her mother going back to the correction today. Overall, the patient denies any chest pain, shortness of breath. She has been ambulating and eating well. However, her daughter has noticed that she is still wheezing quite a bit specially with exertion. Currently: Reports: Cough, Wheezing, KING, SOB, Sputum, Reflux Sx DVT Prophylaxis: Yes - Physical Examination Vital Signs and I&O: Last Vital Signs Temp 98.3 F 09/21/16 10:00 Pulse 81 09/21/16 10:00 Resp 18 09/21/16 10:00 BP 129/62 09/21/16 10:00 Pulse Ox 94 09/21/16 10:00 Oxygen Pulse Oxygen Saturation 94 O2 Device Room Air Oxygen Flow Rate 2 Fraction of Inspired Oxygen ( FIO2) Intake & Output 09/19/16 09/20/16 09/21/16 09/22/16 06:59 06:59 06:59 06:59 Intake Total 100 1783 1366 150 Balance 100 1783 1366 150 Patient's weight 76.232 kg 76.005 kg 76.521 kg General: Alert, Oriented x3, Cooperative, Mild distress HEENT: Normal, PERRLA, EOMI, Anicteric Sclera Neck: Non-tender, Normal inspection, Limited range of motion Lymphatics: Normal (no adenopathy) Respiratory: Diminished, Wheezes. negative: Stridor, Tachypnea Cardiovascular: Regular rate, Normal S1, Normal S2, Murmurs GI: Normal bowel sounds, Soft, Non tender, No hepatospenomegaly, No masses, Obese Extremities/Musculoskeletal: Edema, DJD Skin: Warm,Dry and Intact, No rashes, No significant lesion Neurological: Normal speech, Reflexes 2+ Psych/Mental Status: Appropriate, Normal Affect, Cooperative Lab/DI/Studies Reviewed: Laboratory Tests 09/18/16 09/19/16 09/19/16 22:51 06:30 06:30 Hgb 10.7 L Potassium 3.7 Creatinine 1.20 H 1.10 H - Assessment (1) Bacterial pneumonia Acute J15.9 - UNSPECIFIED BACTERIAL PNEUMONIA Comment/Plan: Patient just completed a course of moxifloxacin on 09/10/2016 that was presumably for a respiratory infection. She does live in assisted living, which could be considered a healthcare facility. Failed outpatient management with recent antibiotic. Plan: Cultures ordered. IV Zosyn for broader coverage for risk of healthcare associated pneumonia or even aspiration pneumonia. (2) Bilateral pneumonia Acute J18.9 - PNEUMONIA, UNSPECIFIED ORGANISM Qualifiers: Pneumonia type: due to unspecified organism Lung location: unspecified part of lung Qualified Code(s): J18.9 - Pneumonia, unspecified organism Comment/Plan: Continue antibiotics in the form of Rocephin and Zithromax. Continue nebulized bronchodilators and mucolytics. (3) Cough Acute R05 - COUGH Comment/Plan: Acute and chronic. Reports that she has had a cough x years but current coughing is much worse. Plan: PRN medications. Will need full workup if it does not resolve; may need outpatient evaluation. (4) GERD (gastroesophageal reflux disease) Acute K21.9 - GASTRO-ESOPHAGEAL REFLUX DISEASE WITHOUT ESOPHAGITIS Qualifiers: Esophagitis presence: without esophagitis Qualified Code(s): K21.9 - Gastro -esophageal reflux disease without esophagitis Comment/Plan: continue ppi (5) Hypothyroid Acute E03.9 - HYPOTHYROIDISM, UNSPECIFIED Qualifiers: Hypothyroidism type: acquired Qualified Code(s): E03.9 - Hypothyroidism, unspecified Comment/Plan: Continue home dose Synthroid (6) Hypoxia Acute R09.02 - HYPOXEMIA Comment/Plan: Patient has dyspnea and is not improving. Patient's PO2 is low. Plan: Place patient on oxygen by nasal cannula and increase to Venti Mask 40% if needed. Monitor oxygen saturation levels and keep O2 sats greater than 92%. (7) Mediastinal mass Acute J98.59 - OTHER DISEASES OF MEDIASTINUM, NOT ELSEWHERE CLASSIFIED Comment/Plan: Patient family undecided on further workup. Will discuss further with him tomorrow. (8) UTI (urinary tract infection) Acute N39.0 - URINARY TRACT INFECTION, SITE NOT SPECIFIED Qualifiers: Urinary tract infection type: acute cystitis Hematuria presence: with hematuria Qualified Code(s): N30.01 - Acute cystitis with hematuria Comment/Plan: Continue antibiotic. Urine culture growing gram-negative rods, final ID pending - Plan Continue present care, will continue IV antibiotics and therapies stated above for 1 more day, if the patient seems to improve or at least be stable, family agrees that it will feel comfortable with discharging her back to the [facility] tomorrow. Case Care Discussed with: Patient, Family, Nursing Staff Total Time: 39
[2016-09-21] MEDS: CEFTRIAXONE 1 GM in D5W 100 ML IV SCH (17:34)
[2016-09-21] MEDS ORDERED: TOLTERODINE 4 MG LA CAP PO SCH (21:00)
[2016-09-21] MEDS: ZOLPIDEM TARTRATE 5 MG TAB PO PRN (21:08)
[2016-09-22] MEDS: Albuterol/Ipratropium Neb 3 ML NEB NEB SCH ×2 (00:59→07:36)
[2016-09-22] MEDS: PANTOPRAZOLE 40 MG TAB PO SCH (05:15)
[2016-09-22] MEDS: GABAPENTIN 300 MG CAP PO SCH (08:04)
[2016-09-22] MEDS: Docusate Sodium 100 MG CAP PO SCH (08:04)
[2016-09-22] MEDS: LUBIPROSTONE 24 MCG CAP PO SCH (08:05)
[2016-09-22] MEDS: LEVOTHYROXINE 50 MCG (0.05 MG) TAB PO SCH (08:05)
[2016-09-22] MEDS: AZITHROMYCIN 250 MG TAB PO SCH (08:05)
[2016-09-22 08:06] VITALS: BP 168/72; PULSE 80; TEMP 98.8
[2016-09-22] MEDS: FUROSEMIDE 20 MG TAB PO SCH (08:06)
[2016-09-22] MEDS: ATENOLOL 25 MG TAB PO SCH (08:06)
[2016-09-22] MEDS: CHOLECALCIFEROL 1000 UNITS TAB PO SCH (11:16)
[2016-09-22] MEDS: VITAMINS, MULTIPLE CAP PO SCH (11:16)
[2016-09-22] MEDS: PROBIOTIC BLEND TAB PO SCH (11:16)
[2016-09-22] MEDS: CYANOCOBALAMIN (Vitamin B-12) 500 MCG TABLET PO SCH (11:16)
--- NOTE | 2016-09-22 11:46 | PCM.DCS92 ---
- Final/Secondary Discharge Diagnosis (1) Bacterial pneumonia Acute J15.9 - UNSPECIFIED BACTERIAL PNEUMONIA Present on Admission: Yes Comment: Patient just completed a course of moxifloxacin on 09/10/2016 that was presumably for a respiratory infection. She does live in assisted living, which could be considered a healthcare facility. Failed outpatient management with recent antibiotic. Plan: Cultures ordered. Patient was initially started on IV Zosyn for broad coverage, this was later narrowed to IV azithromycin and Rocephin which she responded well to. Her pneumonia is almost completely cleared, she still has a slight cough and very minimal wheezing, but is doing well and ready for discharge back to assisted living today. (2) Bilateral pneumonia Acute J18.9 - PNEUMONIA, UNSPECIFIED ORGANISM due to unspecified organism A unspecified part of lung J18.9 - Pneumonia , unspecified organism Comment: Continue antibiotics in the form of Rocephin and Zithromax. Continue nebulized bronchodilators and mucolytics. (3) Cough Acute R05 - COUGH Present on Admission: Yes Comment: Acute and chronic. Reports that she has had a cough x years but current coughing is much worse. Plan: PRN medications. Will need full workup if it does not resolve; may need outpatient evaluation. Could also be related to her mediastinal mass which was just diagnosed. (4) GERD (gastroesophageal reflux disease) Acute K21.9 - GASTRO-ESOPHAGEAL REFLUX DISEASE WITHOUT ESOPHAGITIS without esophagitis K21.9 - Gastro-esophageal reflux disease without esophagitis Comment: continue ppi (5) Hypothyroid Acute E03.9 - HYPOTHYROIDISM, UNSPECIFIED acquired E03.9 - Hypothyroidism, unspecified Comment: Continue home dose Synthroid (6) Hypoxia Acute R09.02 - HYPOXEMIA Present on Admission: Yes Comment: Patient has dyspnea and is not improving. Patient's PO2 is low. Plan: Place patient on oxygen by nasal cannula and increase to Venti Mask 40% if needed. Monitor oxygen saturation levels and keep O2 sats greater than 92%. (7) Mediastinal mass Acute J98.59 - OTHER DISEASES OF MEDIASTINUM, NOT ELSEWHERE CLASSIFIED Comment: Patient family undecided on further workup. Discussed in further detail today, best course of action may be a repeat CT scan in 3-4 months to check on the growth of the mass. Family is still unsure whether they would want any workup at all. I encouraged them to follow up with primary care provider, to discuss the best course of action and potentially reorder CT scan in several months. (8) UTI (urinary tract infection) Acute N39.0 - URINARY TRACT INFECTION, SITE NOT SPECIFIED acute cystitis with hematuria I E N30.01 - Acute cystitis with hematuria Comment: Continue antibiotic. Urine culture growing gram-negative rods, final ID pending Discharge Disposition: Assisted Living Facility Discharge Condition: Good Cognitive Discharge Status: Unimpaired Fuctional Discharge Status: Independent Physician Follow up/Referrals: Vanessa Lucio MD [Primary Care Provider] - One Week Home Medications / New Prescriptions: New Azithromycin [Zithromax] 500 mg PO DAILY #3 tablet Cefpodoxime Proxetil 200 mg PO BID 5 Days Gabapentin [Neurontin] 300 mg PO BID #60 capsule Probiotic Blend [Savi Q] 1 tab PO 1200 #30 tablet Continue Levothyroxine [Synthroid, Levoxyl] 50 mcg PO DAILY Zolpidem Tartrate 5 mg PO HS Vit A/Vit C/Vit E/Zinc/Copper [Preservision Areds Softgel] 1 each PO BID Polyethylene Glycol 3350 17 gm MC DAILY PRN PRN Reason: Constipation Pantoprazole Sodium 40 mg PO DAILY Oxybutynin Chloride [Ditropan Xl] 10 mg PO DAILY Ondansetron HCl 4 mg PO TID PRN PRN Reason: Nausea Melatonin 5 mg PO HS Magnesium Hydroxide [Milk of Magnesia] 30 ml PO DAILY PRN PRN Reason: Constipation Lubiprostone [Amitiza] 24 mcg PO BID Lactobacillus Combination No.4 [Probiotic] 1 each PO DAILY Ibuprofen 600 mg PO DAILY PRN PRN Reason: Pain Ibuprofen 600 mg PO BID Hydrocodone 5 mg & APAP 325 mg [Lortab 5-325 Tab] 0.5 tab PO Q4 PRN PRN Reason: Pain Guaifenesin-Dextromethorphan [Robitussin Dm] 5 ml PO BID PRN PRN Reason: Cough Guaifenesin [Q-Tussin] 10 ml PO QID PRN PRN Reason: Cough Gabapentin [Gralise] 300 mg PO BID Furosemide [Lasix] 20 mg PO DAILY Docusate Sodium 100 mg PO DAILY PRN PRN Reason: Constipation Cyclosporine [Restasis (0.05%)] 1 drop OU BID Cyanocobalamin (Vitamin B-12) [Vitamin B-12] 1,000 mcg PO DAILY Cholecalciferol (Vitamin D3) [Vitamin D3] 2,000 unit PO DAILY Atenolol 25 mg PO DAILY Aspirin (Enteric Coated) [Halfprin] 81 mg PO DAILY Acetaminophen [Tylenol] 650 mg PO Q6 PRN PRN Reason: Fever Denosumab [Prolia] 60 mg SQ .Q6 MONTHS Nitroglycerin [Nitrostat] 0.4 mg SL [id number] PRN PRN Reason: Chest Pain Or Discomfort Acetaminophen [Tylenol Extra Strength] 500 mg PO TID PRN PRN Reason: Pain Norel Ad 0.5 tab PO .BID X 5D Mirabegron [Myrbetriq] 50 mg PO DAILY O2 Device: Room Air Diet at Discharge: As Tolerated Activity: No Restrictions - DC Summary Notes HPI/Notes: This is a pleasant 85-year-old female who was a resident of an assisted living facility was admitted to the hospital with community-acquired bilateral pneumonia, she was treated with empiric IV antibiotics and has improved. She also had a positive urine culture, though with only a few organisms and no urinary tract infection symptoms. Note that it grew a multidrug resistant E coli, which was not treated with the current therapies in the hospital. Despite this, she improved overall, has had no dysuria, frequency of urination or ongoing fevers indicative of anuntreated infection.. Discussed in detail with the daughter on the day prior to discharge, she agrees with the rationale for not treating this apparent colonization. Please see the hospital problems and discharge problems above for details of the hospital course including diagnostics and treatment. The plan of care including medications, prognosis, follow-up including alarm symptoms for which medical care should be sought were reviewed with the patient and any available family members/caretakers. The patient is agreeable to discharge today, and all questions were answered by me to their satisfaction. Hospital Course Note:: Discharge summary on patient named NITO MCKINNEY [place] [facility]16 by Bert Lan MD. Date of discharge is []. Total Time: 39 - Physical Exam Vital Signs: Last Vital Signs Temp 98.8 F 09/22/16 08:05 Pulse 80 09/22/16 08:05 Resp 20 09/22/16 08:05 BP 168/72 09/22/16 08:05 Pulse Ox 94 09/22/16 08:05 Oxygen Pulse Oxygen Saturation 94 O2 Device Room Air Oxygen Flow Rate 2 Fraction of Inspired Oxygen ( FIO2) Constitutional: Alert (Awake), No apparent distress Oriented to: Time, Person, Place Exam: Resting comfortably in bed this morning, daughter is at the bedside. She is awake and alert and comfortable. She feels ready to go home. Her daughter also wants to take her home today. - HEENT Head: Normal ( normocephalic) Eye: Normal (PERRL, EOMI, Sclera white) Oropharynx: Normal (Pharynx:Moist without exudate,Gums-no swelling) Tympanic Membrane: Normal ENT EAC: Normal TMJ: Normal Nose: No Symptoms Reported (septum midline) - Respiratory/Cardiovascular Respiratory: Diminished, Wheezes (Very minimal). negative: Stridor, Tachypnea - GI Auscultation: Normal (NABS) Palpation: Normal (Soft,No rebound or guarding, non distended) Tenderness: Non tender Regalado's Sign: Negative - Musculoskeletal Back: Normal (Non-Tender) Extremities: Normal (Normal tone, Pulses 2+ No cyanosis or edema, FROM) - Integumentary Lymphatics: Normal (no adenopathy) - Neurologic Memory Impaired: Normal Cerebellar: Normal Mood Description: Normal Perception: Normal
== END 2016-09-22 13:42 | DRG 193 ==
LOC: ED 21:40 → MPS3 09-19 01:09
PROVIDERS: ADMIT Internal Medicine; ATTEND Internal Medicine
PROC: 039B3ZZ Drainage of Right Radial Artery, Percutaneous Approach (ICD-10-PCS; principal; 2016-09-19)
DX: J15.9 Unspecified bacterial pneumonia (principal); J98.59 Other diseases of mediastinum, not elsewhere classified; I48.91 Unspecified atrial fibrillation; E86.0 Dehydration; N30.01 Acute cystitis with hematuria; I10 Essential (primary) hypertension; D38.3 Neoplasm of uncertain behavior of mediastinum; E04.1 Nontoxic single thyroid nodule; Z87.01 Personal history of pneumonia (recurrent); K21.9 Gastro-esophageal reflux disease without esophagitis; R09.02 Hypoxemia; E78.00 Pure hypercholesterolemia, unspecified; Z87.440 Personal history of urinary (tract) infections; M19.90 Unspecified osteoarthritis, unspecified site; Z88.2 Allergy status to sulfonamides; Z88.5 Allergy status to narcotic agent; Z79.82 Long term (current) use of aspirin; Z79.899 Other long term (current) drug therapy; Z86.79 Personal history of other diseases of the circulatory system; E03.9 Hypothyroidism, unspecified
CPT/HCPCS: 36415; 36600; 71020; 71275; 80048; 80053; 81001; 82550; 82803; 83880; 84484; 85025; 85027; 87040; 87077; 87086; 87186; 87641; 93005; 94640; 96365; 97161; 98960; 99285; A9698; J0456; J0696; J2543; J3490; J7060; J7070; J7620